=== PATIENT | male | born 1990 | race American Indian/Alaskan Native ===

== ENCOUNTER 2017-07-22 22:09 | Emergency (ER) | payer SELFPAY ==
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
[2017-07-23] MEDS ORDERED: BOOSTRIX IM ONE (03:10)
[2017-07-23 04:17] VITALS: BP 149/89
== END 2017-07-23 04:17 | disposition home or self-care (01) ==
LOC: ED 22:09
DX: S60.812A Abrasion of left wrist, initial encounter (principal); S40.211A Abrasion of right shoulder, initial encounter; S20.229A Contusion of unspecified back wall of thorax, initial encounter; Y04.0XXA Assault by unarmed brawl or fight, initial encounter; Y93.89 Activity, other specified; Y99.8 Other external cause status; Y92.149 Unspecified place in prison as the place of occurrence of the external cause
CPT/HCPCS: 90471; 90715